=== PATIENT | female | born 1965 ===

== ENCOUNTER 2022-05-27 11:24 | Emergency (ER) | payer BC, OTHER ==
[2022-05-27 11:37] VITALS: RESP 18; BMI 34.2
[2022-05-27] MEDS ORDERED: KETOROLAC TROMETHAMINE 30 MG/1 ML VIAL IVPUSH ONE (12:14)
[2022-05-27] MEDS ORDERED: FAMOTIDINE 20 MG/50 ML IVPB 20 MG in PREMIX 50 IVPB ONE (12:14)
[2022-05-27] MEDS ORDERED: SODIUM CHLORIDE 1,000 ML IV ONE (12:14)
[2022-05-27] MEDS ORDERED: ONDANSETRON 4 MG/2 ML VIAL IVPB ONE (12:24)
[2022-05-27] MEDS ORDERED: ONDANSETRON 4 MG/2 ML VIAL ONE (12:28)
[2022-05-27] MEDS ORDERED: FAMOTIDINE 20 MG/50 ML IVPB 20 MG/50 ML MG IVPB ONE (12:28)
[2022-05-27] MEDS ORDERED: KETOROLAC TROMETHAMINE 15 MG/ML VIAL ONE (12:28)
[2022-05-27 12:32] LABS: HEMOGLOBIN 14.5 G/dL (10.7-15.3); MCH 29.2 pg (25.7-33.7); MCHC 35.3 g/dl (32.0-36.0); MEAN CELL VOLUME 82.7 fl (80-96); MEAN PLT VOLUME 8.9 fl (7.5-11.1); PLATELET COUNT 267.5 10^3/uL (134-434); RBC 4.96 10^6/uL (3.60-5.2); RDW 14.8 % (11.6-15.6); WHITE BLOOD COUNT 5.5 10^3/uL (4.0-10.8)
[2022-05-27 12:47] LABS: EPITHELIAL CELLS MODERATE /hpf
[2022-05-27 13:02] LABS: ALBUMIN 3.7 g/dl (3.4-5.0); BILIRUBIN,TOTAL 0.4 mg/dl (0.2-1); CALCIUM 9.6 mg/dl (8.5-10); TOT PROT 6.9 g/dl (6.4-8.2)
[2022-05-27 16:10] VITALS: BP 126/79; PULSE 84; TEMP 98.3
== END 2022-05-27 16:19 | disposition home or self-care (01) ==
LOC: FER 11:24
PROC: 3E033GC Introduction of Other Therapeutic Substance into Peripheral Vein, Percutaneous Approach (ICD-10-PCS; principal; 2022-05-27)
PROC: 3E0333Z Introduction of Anti-inflammatory into Peripheral Vein, Percutaneous Approach (ICD-10-PCS; 2022-05-27)
PROC: 3E033GC Introduction of Other Therapeutic Substance into Peripheral Vein, Percutaneous Approach (ICD-10-PCS; 2022-05-27)
PROC: 3E0337Z Introduction of Electrolytic and Water Balance Substance into Peripheral Vein, Percutaneous Approach (ICD-10-PCS; 2022-05-27)
DX: K82.9 Disease of gallbladder, unspecified (principal); Z11.52 Encounter for screening for COVID-19
CPT/HCPCS: 36415; 76705-TC; 80053; 81003; 81015; 83690; 84484; 85027; 93005; 99285-25; C9803-CS; U0003; U0005